=== PATIENT | female | born 1935 | race Caucasian/White ===

== ENCOUNTER 2025-04-18 12:13 | Emergency (ER) | payer MEDICARE ==
[~2025-04-18] VITALS: Ht 167.6 cm; Wt 76.7 kg
[2025-04-18] MEDS ORDERED: SODIUM CHLORIDE 0.9% 1,000 ML IV ONE (13:40)
[2025-04-18 13:58] LABS: BASO % 0.4 % (0.0-1.0); EOS # 0.1 10*3/uL (0.0-0.4); EOS % 0.7 % (1.0-4.0); HEMATOCRIT 38.7 % (37.0-47.0); MEAN CELL VOLUME 99.5 fl (81.0-99.0); MEAN CORPUSCULAR HGB 32.6 pg (27.0-31.0); MEAN CORPUSCULAR HGB CONC 32.8 g/dl (33.0-37.0); MEAN PLATELET VOLUME 9.2 fl (9.6-12.3); MONO # 0.6 10*3/uL (0.1-1.0); MONO % 7.5 % (3.0-9.0); NEUT # 6.4 10*3/uL (2.3-7.9); NEUT % 76.5 % (47.0-73.0); PLATELET COUNT AUTOMATED 253 10*3/uL (130-400); RED BLOOD COUNT 3.89 10*6/uL (4.10-5.10); RED CELL DISTRI WIDTH 13.8 % (0-14.5); WHITE BLOOD COUNT 8.4 10*3/uL (4.8-10.8)
[2025-04-18 14:14] LABS: TOTAL PROTEIN 7.5 gm/dL (6.0-8.0)
[2025-04-18 14:18] LABS: ACT PARTIAL THROMBO TIME 25.7 SECONDS (20.0-32.1)
== END 2025-04-18 17:18 | disposition home or self-care (01) ==
LOC: ED 12:13
PROVIDERS: Internal Medicine
DX: E86.0 Dehydration (principal); R21 Rash and other nonspecific skin eruption; I10 Essential (primary) hypertension; E11.9 Type 2 diabetes mellitus without complications; R10.2 Pelvic and perineal pain; Z79.899 Other long term (current) drug therapy